=== PATIENT | male | born 1995 | race Caucasian/White ===

== ENCOUNTER 2023-12-06 12:53 | Emergency (ER) | payer SELFPAY ==
[2023-12-06 12:53] VITALS: BP 147/103; PULSE 85; RESP 16; TEMP 35.8; O2SAT 99; BMI 22.3
--- NOTE | 2023-12-06 13:04 | EDS_ITS ---
HPI History of Present Illness Chief Complaint: Substance Abuse EXAM Physical Exam Const Vital Signs: 12/06/23 12:53 Temperature 96.4 F L Temperature Source Temporal Pulse Rate 85 Respiratory Rate 16 Blood Pressure 147/103 H Blood Pressure Mean 117 Pulse Ox 99 Oxygen Delivery Method Room Air [facility] Narrative Medical decision making narrative: HISTORY OF PRESENT ILLNESS: 28-year-old male here with concern for opiate use disorder and requesting detox. States he snorts various opiates does not inject. REVIEW OF SYSTEMS: Pertinent positives: Fatigue, body aches Pertinent negatives: Chest pain, shortness of breath, fever, nausea vomiting, abdominal pain PHYSICAL EXAM: Nursing triage notes reviewed, Vital signs reviewed Constitutional: please see [facility] HENT: MMM Eyes: Pupils equal round and reactive to light, Extraocular muscles intact Neck: No stridor, no JVD, full neck ROM Lungs: Clear to auscultation, No wheezing or rales. No increased work of breathing, no conversational dyspnea, no accessory muscle use, no nasal flaring. No respiratory distress noted Heart: Regular rate and rhythm, No murmurs, No rubs and No gallops, 2+ distal pulses (radial, femoral, posterior tibial) in all extremities Abdomen: Soft, there is no tenderness, rigidity, rebound or guarding, no obvious peritoneal signs, no palpable pulsatile abdominal masses, no auscultated abdominal bruit : No CVAT Extremities: No edema Neuro: No focal neurological deficits, cranial nerves II through XII intact, 5/5 strength in all extremities. Intact sensation to light touch in all extremities, 2+ reflexes bilateral patella tendons. Normal gait. No ataxia. Skin: No rash or lesions noted MEDICAL DECISION MAKING: Chief Complaint: Opiate use disorder External records reviewed: No recent ED visits Factors affecting care: Opiate use disorder Social determinants of health: Opiate use History obtained from others: Patient's family Consults: none [facility] Narrative: Patient is hemodynamically stable, afebrile, nontoxic-appearing. No focal cardiopulmonary findings. No focal neurologic deficits Obtained medical clearance labs. Patient is medically cleared for inpatient detox admission. The patient and/or family, caregivers express understanding. The patient and/or family, caregivers agrees with the plan. Shared decision making: I will have a discussion with the patient and or visitors regarding risk/benefits of further testing or admission. They will be made aware of of the risk/benefits inherent in this decision they will be given the opportunity to voice understanding. Total critical care time today provided was at least 0 minutes. This excludes separately billable procedures. Critical care time (if documented) is secondary to the patient having high probability of clinically significant/life threatening deterioration in the patient's condition which required my urgent intervention. Impression: 1. Opiate use disorder Dispo: Admit This note was generated with [employer] dictation software. It may contain incorrect words, spelling, and punctuation that were not noted in review of the chart prior to signing. Discharge Plan Triage Chief Complaint: Substance Abuse ED Provider: Luis Jarvis Dx/Rx/DC Orders Primary Care Provider: KIAN SANTIAGO Referrals: KIAN SANTIAGO [Other]
--- NOTE | 2023-12-06 13:06 | EKG12_ITS ---
Test Reason : WEAKNES Blood Pressure : / mmHG Vent. Rate : 072 BPM Atrial Rate : 072 BPM P-R Int : 164 ms QRS Dur : 098 ms QT Int : 374 ms P-R-T Axes : 063 078 054 degrees QTc Int : 409 ms Normal sinus rhythm with sinus arrhythmia Indeterminate axis Borderline ECG Confirmed by RICH NICHOLSON, NANCY ([id number]), senior technical editor VIELKA BEAL ([id number]) on 12/07/2023 10:20:29 AM Referred By: Confirmed By:NANCY VILLANUEVA MD
--- NOTE | 2023-12-06 13:11 | NURSING ---
NO OLD EKGS
[2023-12-06 13:29] LABS: Absolute Lymphocyte Count 1.19 X10^3/uL (0.83-4.51); Basophil# 0.02 X10^3/uL; Basophil% 0.3 % (0-1); Eosinophil# 0.02 X10^3/uL; Eosinophils% 0.3 % (0-5); Hemoglobin 15.7 g/dL (13.0-16.5); Lymphocyte # 1.19 X10^3/ul (0.83-4.51); Mean Corp Hgb Conc 34.1 g/dL (32-36); Mean Corpuscular Hgb 29.3 pg (27.0-32.0); Mean Platelet Vol. 10.2 fl (6.2-12.0); Monocyte# 0.21 X10^3/uL; Monocyte% 2.8 % (0-10); NRBC Flagged by Analyzer 0 % (0-5); Neutrophil # 5.98 X10^3/uL (2.7-7.7); Neutrophil % 80.3 % (47-70); Platelet Count 323 K/mm3 (150-450); RBC Distribution Width CV 12.6 % (11.6-14.6); RBC Distribution Width SD 39.2 fl (35.1-43.9); Red Blood Count 5.35 M/mm3 (4.6-6.2); White Blood Count 7.4 K/mm3 (4.4-11.0)
[2023-12-06 13:46] LABS: Amphetamine Urine VISTA NEGATIVE (<1000 ng/mL); Barbiturate Urine VISTA NEGATIVE (< 200 ng/mL); Benzodiazepine Urine VISTA POSITIVE (< 200 ng/mL); Cocaine Urine VISTA NEGATIVE (< 300 ng/mL); Ecstacy Urine VISTA NEGATIVE (< 500 ng/mL); Methadone Urine VISTA NEGATIVE (< 300 ng/mL); PCP Urine VISTA NEGATIVE (< 25 ng/mL); THC Urine VISTA POSITIVE (< 50 ng/mL); Vista UDS pH Range 5
[2023-12-06 13:52] LABS: Anion Gap 7 (5-15); BUN 16 mg/dL (7-18); BUN/Creat Ratio 14.5 RATIO (10-20); Calcium,Total 9.4 mg/dL (8.5-10.1); Chloride 106 mmol/L (98-107); EST Glomerular Filtration Rate 85 mL/min (>60); Est Glom Filt Rate - Afr Amer 102 mL/min (>60); Estimated Creatinine Clearance 88.84 ml/min; Glucose 207 mg/dL (74-106); Potassium 3.2 mmol/L (3.5-5.1); Sodium Level 139 mmol/L (136-145)
[2023-12-06 13:53] LABS: Alcohol, Blood (Medical)-Serum < 3.0 mg/dL
--- OUTSIDE RECORDS SUMMARY | 2023-12-06 14:14 | XMS RPT_ITS | CCD ---
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 Genitourinary: Negative for dysuria, frequency and urgency. Musculoskeletal: Negative for back pain, joint pain and neck pain. Skin: Negative for itching and rash. Neurological: Negative for dizziness, focal weakness, seizures, weakness and headaches. Endo/Heme/Allergies: Negative for environmental allergies and polydipsia. Does not bruise/bleed easily. Psychiatric/Behavioral: Negative for depression, memory loss and suicidal ideas. The patient is not nervous/anxious and does not have insomnia. BP 124/82 Pulse 84 Temp (Src) 98.8 (Temporal) Wt 153 lb (69.4kg) SpO2 99% Last 3 Encounter BP Readings: Date: BP: 07/08/2023 124/82 09/15/2022 122/62 07/08/2022 114/80 Last 3 Encounter Wt Readings: Date: Wt: 07/08/2023 153 lb (69.4 kg) 09/15/2022 164 lb 6.4 oz (74.6 kg) 07/08/2022 161 lb (73 kg) Physical Exam Vitals and nursing note reviewed. Constitutional: General: He is not in acute distress. Appearance: He is not diaphoretic. HENT: Head: Normocephalic and atraumatic. Cardiovascular: Rate and Rhythm: Normal rate and regular rhythm. Pulmonary: Effort: Pulmonary effort is normal. No respiratory distress. Breath sounds: Wheezing (in all lung ibrahim) present. Skin: General: Skin is warm and dry. Neurological: Mental Status: He is alert and oriented to person, place, and time. ASSESSMENT/PLAN: 1. Mild intermittent asthma with exacerbation - ICD9: 493.92, ICD10: J45.21 (primary diagnosis) - Mild intermittent asthma acute excacerbation without status - Exacerbation treatment of prednisone burst - Avoidance of triggers recommended - PREDNISONE 20 MG TABLET 2. Acute cough - ICD9: 786.2, ICD10: R05.1 - OTC meds PRN Jelani Manley MD Discussed above plan with patient. Pt agreeable with above plan. Medical Decision Making: Problems: Moderate: Acute illness with systemic symptoms Risk: Moderate: Drug management Medical Decision Making Level: 4 - Moderate [facility] 07-08-2023 History of Present illness Narrative Visit Date: July 08, 2023 Patient Name: Mr.Cheston Gray Date of : 1995 MRN/E #: [id number] Chief Complaint Patient presents with: Cough Nursing Intake: There are no exam notes on file for this visit. History of present illness Daxa Gary is a 27 year old male who presents for cough and SOB. Pt states symptoms started about 3-4 days ago. Has been having a cough with some clear to yellow sputum production. Has SOB worse at night. Denies fever, chills, Gi symptoms, sinus pain/pressure, ear pain, sore throat. Has not tried anything for this. His mother in law has been sick and he lives with her. I have confirmed and edited as necessary, the PFSH and ROS obtained by others. ALLERGIES No Known Allergies No past medical history on file. PAST SURGICAL HISTORY Procedure Laterality Date PARTIAL REMOVAL OF COLON infant Social History Tobacco Use Smoking status: Every Day Packs/day: .5 Types: Cigarettes Smokeless tobacco: Never Vaping Use Vaping Use: Never used Substance Use Topics Alcohol use: Not Currently Drug use: Not Currently FAMILY HISTORY Problem Relation Age of Onset Diabetes Father Review of Systems Constitutional: Negative for chills, diaphoresis, fever and weight loss. HENT: Negative for congestion, ear pain, hearing loss, sinus pain and sore throat. Eyes: Negative for blurred vision, pain and discharge. Respiratory: Positive for cough, sputum production and shortness of breath. Cardiovascular: Negative for chest pain and palpitations. Gastrointestinal: Negative for abdominal pain, constipation, diarrhea, nausea and vomiting. Genitourinary: Negative for dysuria, frequency and urgency. Musculoskeletal: Negative for back pain, joint pain and neck pain. Skin: Negative for itching and rash. Neurological: Negative for dizziness, focal weakness, seizures, weakness and headaches. Endo/Heme/Allergies: Negative for environmental allergies and polydipsia. Does not bruise/bleed easily. Psychiatric/Behavioral: Negative for depression, memory loss and suicidal ideas. The patient is not nervous/anxious and does not have insomnia. BP 124/82 Pulse 84 Temp (Src) 98.8 (Temporal) Wt 153 lb (69.4kg) SpO2 99% Last 3 Encounter BP Readings: Date: BP: 07/08/2023 124/82 09/15/2022 122/62 07/08/2022 114/80 Last 3 Encounter Wt Readings: Date: Wt: 07/08/2023 153 lb (69.4 kg) 09/15/2022 164 lb 6.4 oz (74.6 kg) 07/08/2022 161 lb (73 kg) Physical Exam Vitals and nursing note reviewed. Constitutional: General: He is not in acute distress. Appearance: He is not diaphoretic. HENT: Head: Normocephalic and atraumatic. Cardiovascular: Rate and Rhythm: Normal rate and regular rhythm. Pulmonary: Effort: Pulmonary effort is normal. No respiratory distress. Breath sounds: Wheezing (in all lung ibrahim) present. Skin: General: Skin is warm and dry. Neurological: Mental Status: He is alert and oriented to person, place, and time. ASSESSMENT/PLAN: 1. Mild intermittent asthma with exacerbation - ICD9: 493.92, ICD10: J45.21 (primary diagnosis) - Mild intermittent asthma acute excacerbation without status - Exacerbation treatment of prednisone burst - Avoidance of triggers recommended - PREDNISONE 20 MG TABLET 2. Acute cough - ICD9: 786.2, ICD10: R05.1 - OTC meds PRN Jelani Manley MD Discussed above plan with patient. Pt agreeable with above plan. Medical Decision Making: Problems: Moderate: Acute illness with systemic symptoms Risk: Moderate: Drug management Medical Decision Making Level: 4 - Moderate documented in this encounter [facility] 01-12-2023 Emergency department Note EMERGENCY DEPARTMENT ENCOUNTER Pt Name: Daxa Gray Birthdate 1995 Date of evaluation: 01/12/2023 ED Provider: Jj Rowland MD CHIEF COMPLAINT Chief Complaint Patient presents with Earache HISTORY OF PRESENT ILLNESS (Location/Symptom, Timing/Onset, Context/Setting, Quality, Duration, Modifying Factors, Severity) Note limiting factors. I wore appropriate PPE for the entirety of this encounter. HPI Daxa Gray is a 27 y.o. male who presents to the emergency department complaint of right ear pain and drainage. He denies nasal congestion, sore throat, cough. Denies being immunocompromise. Denies being diabetic. Nursing Notes were reviewed. REVIEW OF SYSTEMS Review of Systems Constitutional: Negative for chills and fever. HENT: Positive for ear discharge and ear pain. Negative for congestion and sore throat. Respiratory: Negative for cough and shortness of breath. Cardiovascular: Negative for chest pain. Allergic/Immunologic: Negative for immunocompromised state. Pertinent positives and negatives as per HPI PAST MEDICAL HISTORY History reviewed. No pertinent past medical history. SURGICAL HISTORY History reviewed. No pertinent surgical history. CURRENT MEDICATIONS Previous Medications No medications on file ALLERGIES Patient has no known allergies. FAMILY HISTORY No family history on file. SOCIAL HISTORY Social History Socioeconomic History Marital status: Tobacco Use Smoking status: Every Day Packs/day: 0.50 Types: Cigarettes Smokeless tobacco: Never Substance and Sexual Activity Alcohol use: Not Currently Drug use: Yes Types: Marijuana SCREENINGS PHYSICAL EXAM ED Triage Vitals [01/12/23 1626] Temp Heart Rate Resp BP 37 C (98.6 F) 88 16 134/79 SpO2 Temp Source Heart Rate Source Patient Position 98 % Temporal Monitor -- BP Location FiO2 (%) -- -- Physical Exam Vitals and nursing note reviewed. Constitutional: General: He is not in acute distress. Appearance: He is not ill-appearing. Comments: 27-year-old male HENT: Head: Normocephalic and atraumatic. Left Ear: Tympanic membrane and external ear normal. Ears: Comments: Patient has right external ear canal with erythema with discharge. No significant pain with movement of the pinna. Visualized portion of tympanic membrane is nonerythematous or bulging. No mastoid tenderness. Nose: Nose normal. Mouth/Throat: Mouth: Mucous membranes are moist. Pharynx: Oropharynx is clear. No oropharyngeal exudate or posterior oropharyngeal erythema. Eyes: Extraocular Movements: Extraocular movements intact. Pupils: Pupils are equal, round, and reactive to light. Cardiovascular: Rate and Rhythm: Normal rate and regular rhythm. Pulmonary: Effort: Pulmonary effort is normal. Musculoskeletal: Cervical back: Normal range of motion. Neurological: Mental Status: He is alert. DIAGNOSTIC RESULTS RADIOLOGY (Per Emergency Physician): Interpretation per the Radiologist below, if available at the time of this note: No orders to display LABS: Labs Reviewed - No data to display All other labs were within normal range or not returned as of this dictation. EMERGENCY DEPARTMENT COURSE and DIFFERENTIAL DIAGNOSIS/MDM: Vitals: Vitals: 01/12/23 1626 BP: 134/79 Pulse: 88 Resp: 16 Temp: 37 C (98.6 F) TempSrc: Temporal SpO2: 98% Medications - No data to display Evaluated for his right ear pain. Patient has external ear canal edema with discharge. No mastoid tenderness. Visualize tympanic membrane does not appear consistent with an otitis media. Patient prescribed ciprofloxacin, dexamethasone otic drops. Evaluated in triage. MDM elements: The patient presented with chief complaint of right ear pain. The differential diagnosis associated with this patient's presentation includes station tube dysfunction, otitis externa, otitis media, mastoiditis. Patient is in agreement with this plan. PROCEDURES: Unless otherwise noted below, none Procedures FINAL IMPRESSION 1. Acute otitis externa of right ear, unspecified type DISPOSITION PATIENT REFERRED TO: No follow-up provider specified. DISCHARGE MEDICATIONS: New Prescriptions No medications on file (Comment: Please note this report has been produced using speech recognition software and may contain errors related to that system including errors in grammar, punctuation, and spelling, as well as words and phrases that may be inappropriate. If there are any questions or concerns please feel free to contact the dictating provider for clarification.) Jj Rowland MD (electronically signed) Emergency Medicine Provider Jj Rowland MD 01/12/23 7506 Pt presents with r ear pain. States it started today and is draining thick drainage . Took ibuprofen an hour ago without relief. documented in this encounter [facility] 01-12-2023 Emergency department Triage note Pt presents with r ear pain. States it started today and is draining thick drainage . Took ibuprofen an hour ago without relief. [facility] 01-12-2023 Physician Emergency department Note EMERGENCY DEPARTMENT ENCOUNTER Pt Name: Daxa Gray Birthdate 1995 Date of evaluation: 01/12/2023 ED Provider: Jj Rowland MD CHIEF COMPLAINT Chief Complaint Patient presents with Earache HISTORY OF PRESENT ILLNESS (Location/Symptom, Timing/Onset, Context/Setting, Quality, Duration, Modifying Factors, Severity) Note limiting factors. I wore appropriate PPE for the entirety of this encounter. HPI Daxa Gray is a 27 y.o. male who presents to the emergency department complaint of right ear pain and drainage. He denies nasal congestion, sore throat, cough. Denies being immunocompromise. Denies being diabetic. Nursing Notes were reviewed. REVIEW OF SYSTEMS Review of Systems Constitutional: Negative for chills and fever. HENT: Positive for ear discharge and ear pain. Negative for congestion and sore throat. Respiratory: Negative for cough and shortness of breath. Cardiovascular: Negative for chest pain. Allergic/Immunologic: Negative for immunocompromised state. Pertinent positives and negatives as per HPI PAST MEDICAL HISTORY History reviewed. No pertinent past medical history. SURGICAL HISTORY History reviewed. No pertinent surgical history. CURRENT MEDICATIONS Previous Medications No medications on file ALLERGIES Patient has no known allergies. FAMILY HISTORY No family history on file. SOCIAL HISTORY Social History Socioeconomic History Marital status: Tobacco Use Smoking status: Every Day Packs/day: 0.50 Types: Cigarettes Smokeless tobacco: Never Substance and Sexual Activity Alcohol use: Not Currently Drug use: Yes Types: Marijuana SCREENINGS PHYSICAL EXAM ED Triage Vitals [01/12/23 1626] Temp Heart Rate Resp BP 37 C (98.6 F) 88 16 134/79 SpO2 Temp Source Heart Rate Source Patient Position 98 % Temporal Monitor -- BP Location FiO2 (%) -- -- Physical Exam Vitals and nursing note reviewed. Constitutional: General: He is not in acute distress. Appearance: He is not ill-appearing. Comments: 27-year-old male HENT: Head: Normocephalic and atraumatic. Left Ear: Tympanic membrane and external ear normal. Ears: Comments: Patient has right external ear canal with erythema with discharge. No significant pain with movement of the pinna. Visualized portion of tympanic membrane is nonerythematous or bulging. No mastoid tenderness. Nose: Nose normal. Mouth/Throat: Mouth: Mucous membranes are moist. Pharynx: Oropharynx is clear. No oropharyngeal exudate or posterior oropharyngeal erythema. Eyes: Extraocular Movements: Extraocular movements intact. Pupils: Pupils are equal, round, and reactive to light. Cardiovascular: Rate and Rhythm: Normal rate and regular rhythm. Pulmonary: Effort: Pulmonary effort is normal. Musculoskeletal: Cervical back: Normal range of motion. Neurological: Mental Status: He is alert. DIAGNOSTIC RESULTS RADIOLOGY (Per Emergency Physician): Interpretation per the Radiologist below, if available at the time of this note: No orders to display LABS: Labs Reviewed - No data to display All other labs were within normal range or not returned as of this dictation. EMERGENCY DEPARTMENT COURSE and DIFFERENTIAL DIAGNOSIS/MDM: Vitals: Vitals: 01/12/23 1626 BP: 134/79 Pulse: 88 Resp: 16 Temp: 37 C (98.6 F) TempSrc: Temporal SpO2: 98% Medications - No data to display Evaluated for his right ear pain. Patient has external ear canal edema with discharge. No mastoid tenderness. Visualize tympanic membrane does not appear consistent with an otitis media. Patient prescribed ciprofloxacin, dexamethasone otic drops. Evaluated in triage. MDM elements: The patient presented with chief complaint of right ear pain. The differential diagnosis associated with this patient's presentation includes station tube dysfunction, otitis externa, otitis media, mastoiditis. Patient is in agreement with this plan. PROCEDURES: Unless otherwise noted below, none Procedures FINAL IMPRESSION 1. Acute otitis externa of right ear, unspecified type DISPOSITION PATIENT REFERRED TO: No follow-up provider specified. DISCHARGE MEDICATIONS: New Prescriptions No medications on file (Comment: Please note this report has been produced using speech recognition software and may contain errors related to that system including errors in grammar, punctuation, and spelling, as well as words and phrases that may be inappropriate. If there are any questions or concerns please feel free to contact the dictating provider for clarification.) Jj Rowland MD (electronically signed) Emergency Medicine Provider Jj Rowland MD 01/12/23 5358 [facility] 12-16-2022 Miscellaneous Notes messaged the patient to inform. Cheyenne Moreno December 16, 2022 10:15 AM Has missed last 2 appointments. Needs a follow-up Kevin Santiago PA-C Pharmacy faxed requesting the following refill Refill(s) Requested: Requested Prescriptions Pending Prescriptions Disp Refills montelukast (SINGULAIR) 10 mg tablet [Pharmacy Med Name: MONTELUKAST SOD 10 MG TABLET] 30 tablet 2 Sig: TAKE 1 TABLET BY MOUTH EVERYDAY AT BEDTIME ALLERGIES No Known Allergies (home) [phone] (cell) Last Office Visit Date: 09/15/2022 Last [facility] Health Visit: Visit date not found Future Appointment: Visit date not found The patients preferred pharmacy has been captured for this encounter? yes Request is for script(s) to be escript to pharmacy. Monalisa Terry MA documented in this encounter [facility] 12-01-2022 Miscellaneous Notes No Show Documentation Cheston Collmar no showed for an appointment on 12/01/2022 with Kevin Santiago PA-C at 1:40AM. He was scheduled for Back pain and UTI. I called and spoke with the patient regarding his missed appointment. Cheston stated the reason that he missed his appointment was because spoke with patient but he hung up on me and when I Called back he did not answer . Resources discussed/offered to patient: N/A No show determined to be fault of patient: Yes This is the patients third no show in the last 12 months. Patient was rescheduled for N/A. Letter mailed : Yes Is this the Third or Fourth No Show ? Yes Danielle Ruggiero December 01, 2022 2:50 PM documented in this encounter [facility] 10-06-2022 Miscellaneous Notes Pt missed last appointment and no follow-ups scheduled. Please reach out to patient for follow-up in the next 3 months Kevin Santiago PA-C Patient/Patient's Pharmacy is requesting the following refill. Patient's last appointment: 09/15/22. Next appointment: not found . Requested Prescriptions Pending Prescriptions Disp Refills omeprazole (PRILOSEC) 20 mg capsule [Pharmacy Med Name: OMEPRAZOLE DR 20 MG CAPSULE] 30 capsule 2 Sig: TAKE 1 CAPSULE BY MOUTH ONCE DAILY Patient Phone numbers: [phone] (home) Request is for script(s) to be escript to pharmacy. Shena Oliveros LPN documented in this encounter [facility] 09-30-2022 Miscellaneous Notes No Show Documentation Daxa Gray no showed for an appointment on 09/30/2022 with Kevin Santiago PA-C at 3:00pm. He was scheduled for check breathing follow up appointment. I called and no voice mail box was set up yet regarding his missed appointment. Daxa stated the reason that he missed his appointment was because no voice mail box was set up yet. Resources discussed/offered to patient: na No show determined to be fault of patient: N/A This is the patients second no show in the last 12 months. Patient was rescheduled for na. Letter mailed : Yes Is this the Third or Fourth No Show ? No Laurel Gamez September 30, 2022 3:36 PM documented in this encounter [facility] 09-24-2022 Miscellaneous Notes Patient notified Monalisa Terry MA ----- Message from Kevin Santiago PA-C sent at 09/24/2022 12:09 PM EST ----- Vitamin D is low- recommend starting OTC supplement, 1000 units daily Glucose elevated, recommend A1c at next office visit Kidney function slightly decreased but still in normal range, recommend drinking at least 64 oz of water daily CXR was negative All other labs WNL Kevin Santiago PA-C documented in this encounter [facility] 09-08-2022 Miscellaneous Notes No Show Documentation Daxa Gray no showed for an appointment on 09/08/2022 with Kevin Santiago PA-C at 8:20AM. He was scheduled for 2 Month Follow Up. I called but was unable to leave a message or speak with the patient regarding his missed appointment. Daxa stated the reason that he missed his appointment was because N/A . Resources discussed/offered to patient: Unable to leave a message No show determined to be fault of patient: N/A This is the patients second no show in the last 12 months. Patient was rescheduled for N/A. Letter mailed : Yes Is this the Third or Fourth No Show ? No Danielle Ruggiero September 08, 2022 8:43 AM documented in this encounter [facility] 08-27-2022 Miscellaneous Notes Labs mailed Orders placed again for labs. Kevin Santiago PA-C Patient went to get labs and chest xray done, they told patient his orders were . They want you to put in new orders. They cancelled his xray order. Can you put in new order? PARVIN Bashir August 26, 2022 3:17 PM documented in this encounter [facility] 07-08-2022 Instructions Kevin Santiago PA-C - 07/08/2022 9:05 AM EDT Images from the original note were not included. Obtain chest XR Please obtain labs prior to your next appointment. You must be fasting for 8 hours prior to obtaining labs. For breathing: Medrol dose back Start Symbicort twice daily for asthma control Use albuterol as needed for wheezing/shortness of breath every 4-6 hours as needed For acid reflux: Take Prilosec 20 mg once daily 30 min prior to eating Call with questions or concerns, Kevin Santiago PA-C GERD, Hiatal Hernia & Heartburn What is gastroesophageal reflux? Gastroesophageal reflux or GERD, is the presence of stomach contents in the esophagus. A weakened valve between the esophagus and stomach allows gastric contents to irritate the esophagus. GERD affects many people, and usually presents itself as heartburn. In most cases, heartburn can be relieved through diet and lifestyle changes. Six tips to control heartburn Avoid foods and beverages that irritate the esophagus and might further weaken the muscular valve. These include fried and fatty foods, peppermint, chocolate, alcohol, coffee, citrus fruits and juices, and tomato products. Lose weight if you are overweight. Stop smoking. Elevate your head 6 inches by elevating the head of your bed on blocks or books. Avoid lying down two to three hours after eating. Take an [id number] antacid. Decreasing your portion sizes at mealtime might also improve symptoms. Eating meals at least two to three hours before bedtime might lessen reflux by allowing the acid in the stomach to decrease and the stomach to partially empty. What is the role of hiatal hernia as a cause of reflux? Heartburn occurs when the lower esophageal sphincter (LES) is not as strong as normal. This allows stomach acid to escape back into the esophagus and create discomfort. Hiatal hernia is diagnosed when the stomach moves up into the chest through the opening in the diaphragm. (The diaphragm is the boundary that separates the abdominal contents from the chest cavity.) The opening in the diaphragm acts as an additional barrier to acid reflux. Hiatal hernia might not require treatment unless it is in danger of strangulation or complicated by GERD. What are the goals of treating reflux? Eliminate the patient's symptoms Heal esophageal injury Manage or prevent return of reflux Prevent complications What tests are used to diagnose reflux-associated problems? Barium meal UGI (upper gastrointestinal barium exam) Upper endoscopy (flexible tube with light and camera to examine digestive tract) 24-hour ph monitoring (measures the amount of acid flowing into the esophagus from the stomach) High resolution esophageal manometry (measures the function of the lower esophageal sphincter) Gastric emptying study Does GERD and hiatal hernia require surgery? A small number of patients might need surgery because of poor response to medical therapy. Although GERD and hiatal hernia can limit daily activities, most people will find relief with an understanding of the causes and proper treatment. Can surgery help stop GERD? A laparoscopic (minimally invasive) repair of hiatal hernia and reflux called Susu fundoplication has been shown to be 90% effective in most patient populations. The surgery strengthens the lower esophageal sphincter. It requires general anesthesia and a one-day stay in the hospital. Postoperatively, patients no longer require long-term therapy with Prilosec or other antacid medications. References [place]. Acid Reflux Accessed 01/28/2016. [place] [employer]. Gastroesophageal Reflux Disease (GERD) Accessed 01/28/2016. [employer] [place] [employer] and [employer]estive [employer]. Gastroesophageal Reflux (AEC) and Gastroesophageal Reflux Disease (GERD) Accessed 01/28/2016. Copyright 8833-0002 The [facility]. All rights reserved This information is provided by the [facility] and is not intended to replace the medical advice of your doctor or health care provider. Please consult your health care provider for advice about a specific medical condition. For additional health information, please contact the Center for Consumer Health Information at the [facility] or toll-free extension [phone]. If you prefer, you may visit [email or web address] or [email or web address]. This document was last reviewed on: 2016 index#[id number] documented in this encounter [facility] 07-08-2022 History of Present illness Narrative Images from the original note were not included. [facility] [address] [address] Date of Evaluation: 07/08/2022 Patient Name: Daxa Gray : 1995 Chief Complaint: Patient presents with: Heartburn Cough Nursing Intake: There are no exam notes on file for this visit. Subjective Mr. Gray is a 26 year old male who presents for annual physical exam. HPI Patient presents to establish care with our

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
--- NOTE | 2023-12-06 15:45 | PCM.HP.STD ---
HPI - General General Date of Admission: 12/06/23 Date of Service: 12/06/23 Chief Complaint: Opioid de-addiction HPI Narrative JAMEY GRAY, is a 28 M who presents to the hospital for concerns regarding chronic opioid use [fentanyl, Percocet]'s noted almost every day for the last 2 years. His last use was yesterday. He also smokes 1 pack a day of cigarettes, and marijuana. He previously has tried cocaine use but is no longer using the same. Denies any alcohol use or benzodiazepine use. No IV drug abuse. Has tattoos in the past but no needle sharing. He is motivated to quit for his health, take care of his and children. He is presently employed. Has a history of colonic resection due to infection in childhood. Has not tried inpatient rehabilitation before. Has a history of asthma was prescribed albuterol but not using it regularly. No cough or any other concerns. [facility] Allergy/AdvReac Type Severity Reaction Status Date / Time No Known Allergies Allergy Verified 12/06/23 15:52 ROS Review of Systems ROS Unobtainable: Denies due to encephalopathy, due to endotracheal tube, due to mental condition, due to mental status or other Constitutional Constitutional: Denies anorexia, change in weight, chills, fatigue, fever(s), malaise, night sweats, weakness or other Eyes Eyes: Denies blurry vision, change in eye color, change in vision, discharge from eye(s), double vision, erythema, eye pain, loss of vision or other ENT HEENT: Denies abnormal hearing, dysphagia, ear pain, epistaxis, headache(s), hearing loss, nasal congestion, nasal discharge, post nasal drip, sinus pressure, sore throat or other Cardiovascular Cardiovascular: Denies chest pain, claudication, dyspnea on exertion, edema, lightheadedness, orthopnea, palpitations, paroxysmal nocturnal dyspnea, rapid heart rate, syncope or other Respiratory/Chest Respiratory/Chest: Denies cough, dyspnea, excessive phlegm production, hemoptysis, productive cough, shortness of breath at rest, shortness of breath with exertion, wheezing or other Gastrointestinal Gastrointestinal: Denies abdominal pain, coffee ground emesis, constipation, diarrhea, dyspepsia, hematemesis, hematochezia, loose stools, melena, nausea, vomiting or other Genitourinary Genitourinary: Denies burning urination, difficulty urinating, dysuria, hematuria, nocturia, urinary frequency, urinary hesitancy, urinary incontinence, urinary urgency or other Musculoskeletal Musculoskeletal: Denies arthralgias, back pain, joint pain, joint stiffness, joint swelling, myalgias, neck pain or other Neurologic Neurologic: Denies abnormal gait, abnormal speech, confusion, disequilibrium, dizziness, focal weakness, headache(s), numbness, paresthesias, seizure-like activity, seizures, syncope, tingling, tremor(s) or other Psychiatric Psychiatric: Denies anxiety, depression, homicidal ideation, suicidal ideation or other Endocrine Endocrinology: Denies change in body appearance, cold intolerance, excessive sweating, heat intolerance, polydipsia, polyuria or other Hematologic/Lymphatic Hematologic/Lymphatic: Denies anemia, easy bleeding, easy bruising, lymphadenopathy or other Allergic/Immunologic Allergic/Immunologic: Denies rhinitis, hives, eczemia, asthma or other Vital Signs Vital Signs Vital Signs: 12/06/23 12:53 Temperature 96.4 F L Temperature Source Temporal Pulse Rate 85 Respiratory Rate 16 Blood Pressure 147/103 H Blood Pressure Mean 117 Pulse Ox 99 Oxygen Delivery Method Room Air Weight Weight: 138 lb 8 oz Body Mass Index (BMI) 22.3 Physical Exam Const alert, oriented x3, no apparent distress, average body habitus and healthy appearing HEENT normocephalic Eyes PERRL and EOMs intact bilaterally Neck no lymphadenopathy Resp normal respiratory effort Cardio regular rate and regular rhythm GI normal to inspection, nondistended, normoactive bowel sounds Neuro oriented x3 and CN's II-XII intact bilaterally Results Medical Records Data Attestation: I reviewed the patient's medical records Lab / Micro Data 12/06/23 13:18 12/06/23 13:18 Labs: Laboratory Results - last 24 hr 12/06/23 13:18: WBC 7.4, RBC 5.35, Hgb 15.7, Hct 46.0, MCV 86.0, MCH 29.3, MCHC 34.1, RDW Std Deviation 39.2, RDW Coeff of Syd 12.6, Plt Count 323, MPV 10.2, Immature Gran % (Auto) 0.300, Neut % (Auto) 80.3 H, Lymph % (Auto) 16.0 L, [place] % (Auto) 2.8, Eos % (Auto) 0.3, Baso % (Auto) 0.3, Absolute Neuts (auto) 6.0, Absolute Lymphs (auto) 1.19, Nucleated RBC % 0, Sodium 139, Potassium 3.2 L, Chloride 106, Carbon Dioxide 26.0, Anion Gap 7, BUN 16, Creatinine 1.10, Estim Creat Clear Calc 88.84, Est GFR (MDRD) Af Amer 102, Est GFR (MDRD) Non-Af 85, BUN/Creatinine Ratio 14.5, Glucose 207 H, Calcium 9.4, Ethyl Alcohol < 3.0 12/06/23 13:21: Urine Opiates Screen NEGATIVE, Urine Methadone Screen NEGATIVE, Ur Barbiturates Screen NEGATIVE, Ur Phencyclidine Scrn NEGATIVE, Ur Amphetamines Screen NEGATIVE, MDMA (Ecstasy) Screen NEGATIVE, U Benzodiazepines Scrn POSITIVE H, Urine Cocaine Screen NEGATIVE, U Cannabinoids Screen POSITIVE H, Ur Drug Screen Comment Assessment & Plan Assessment/Plan (1) Drug abuse, opioid type: PLAN: Plan MR Gray, 28-year-old gentleman presents to the hospital for inpatient rehabilitation therapy for chronic opioid use. He has no active symptoms at this time and is overall doing well. He is presently motivated to quit and has good social support. At this time he has no features of withdrawal 1. Opioid withdrawal: -Manage based on the clinical opioid withdrawal scale -Anxiolytics, antidiarrheals and medication for abdominal cramps have been ordered 2. Chronic nicotine use -Nicotine patch 21 mg as needed -Inpatient direction therapy for nicotine abuse 3. Has good social support, social media sr strategy manager consult if needed. 4. DVT prophylaxis with enoxaparin ordered 5. Asthma: He is only on reliever therapy as needed -No indication for therapy at this time -Will continue to monitor Charges/Coding Visit Charges Inpatient E&M: 43028 Init Hosp L1
== END 2023-12-06 15:10 | disposition left against medical advice (07) ==
LOC: ED 14:12
PROVIDERS: Emergency Medicine
DX: F11.988 Opioid use, unspecified with other opioid-induced disorder (principal)
CPT/HCPCS: 80048; 80307; 80320; 85025; 93005; G0480

== ENCOUNTER 2023-12-06 15:51 | Inpatient (IN) | payer SELFPAY ==
[2023-12-06 15:52] VITALS: BP 130/99; PULSE 111; RESP 20; TEMP 37.7; O2SAT 97; BMI 22.0
--- NOTE | 2023-12-06 16:44 | EX.ED.SAOD ---
HPI History of Present Illness Chief Complaint: Substance Abuse Informant: patient Narrative Narrative: Patient returns to the ER requesting admission for detox. He was seen earlier today requesting detox from Percocet and fentanyl. He was all set to be admitted when he became nervous about not being able to contact his family and left the emergency room. He states he smoked some marijuana to help calm his nerves and he returns with his family supporting him for admission and detox. He states he feels cold, a little shaky, and slightly nauseated. [facility] Medical History (Updated 12/06/23 @ 16:[address] Shena Osorio MD) Drug abuse, opioid type Allergy/AdvReac Type Severity Reaction Status Date / Time No Known Allergies Allergy Verified 12/06/23 15:52 ROS ROS ED Constitutional Constitutional ED: Reports chills; Denies fever(s) Eyes Eyes: Denies discharge from eye(s) ENT ENT ED: Denies discharge from eye(s), rhinorrhea or sore throat Cardiovascular Cardiovascular: Denies chest pain or palpitations Respiratory/Chest Respiratory/Chest: Denies cough or dyspnea Gastrointestinal Gastrointestinal: Reports nausea; Denies abdominal pain or vomiting Genitourinary Genitourinary ED: Denies dysuria Musculoskeletal Musculoskeletal: Denies back pain or extremity pain Integumentary Denies Abrasions or rash Neurologic Neurologic: Denies headache(s) or weakness Psychiatric Psychiatric: Reports anxiety; Denies depression Allergic/Immunologic Allergic/Immunologic ED: Denies lip swelling or urticaria EXAM Physical Exam Const Vital Signs: 12/06/23 15:52 Temperature 99.8 F H Temperature Source Temporal Pulse Rate 111 H Respiratory Rate 20 H Blood Pressure 130/99 H Blood Pressure Mean 109 Pulse Ox 97 Oxygen Delivery Method Room Air Positive well nourished and well developed General Appearance ED: well developed HEENT Reports moist mucous membranes Eyes EOMs intact bilaterally Chest Wall inspection of chest normal and palpation of chest normal Resp normal respiratory effort and clear to auscultation bilaterally Cardio Rate: tachycardic GI soft to palpation and non-tender Auscultation: hypoactive bowel sounds Neuro oriented x3 and no sensory deficits noted Sensorium / Orientation: alert Motor Exam: strength 5/5 throughout Psych Mood & Affect: anxious MDM MDM MDM Narrative Medical decision making narrative: Patient's labs from earlier today reviewed. He does admit to using marijuana when he left here but no other drug use. He understands the rules of the program and does wish to be admitted. I will speak with hospitalist. IV line will be established and he will be given IV fluids, Zofran, and Ativan to help with his symptoms currently. Discharge Plan Triage Chief Complaint: Substance Abuse ED Provider: Shena Osorio Dx/Rx/DC Orders Clinical Impression: Desire for detoxification, Drug abuse, opioid type Primary Care Provider: KIAN SANTIAGO Referrals: KIAN SANTIAGO [Other] Disposition Disposition: Acute Care Hospital [facility]
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
[2023-12-06] MEDS: Ondansetron 4 MG/2 ML Vial IV (17:09)
[2023-12-06] MEDS: Lorazepam 2 MG/ML WCH Syringe 0.5 MG IV (17:09)
[2023-12-06] MEDS: 0.9% Normal Saline (1000mL) 1,000 ML 999 ML IV (17:09)
--- NOTE | 2023-12-06 17:19 | NURSING ---
MED SURG ADRIAN OPIATE ABUSE, DESIRE FOR DETOX
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
[2023-12-06 18:57] VITALS: BP 133/65; PULSE 70; RESP 16; TEMP 36.6; O2SAT 100
[2023-12-06 20:00] VITALS: BMI 21.2
[2023-12-06 20:11] VITALS: BP 132/78; PULSE 65; RESP 16; TEMP 36.9; O2SAT 96
[2023-12-06 22:59] VITALS: BP 113/61; PULSE 65; RESP 16; TEMP 36.5; O2SAT 98
[2023-12-06] MEDS: Gabapentin 300 MG Capsule PO (23:02)
[2023-12-06] MEDS: Buprenorphine HCl 2 MG TAB.SUBL SL (23:10)
[2023-12-06] MEDS: traZODone 100 MG Tablet PO (23:10)
[2023-12-07] MEDS: Dicyclomine 10 MG Capsule 20 MG PO (00:50)
[2023-12-07] MEDS: Methocarbamol 750 MG Tablet PO ×3 (00:50→22:17)
[2023-12-07 05:53] VITALS: BP 134/70; PULSE 62; RESP 18; TEMP 36.4; O2SAT 96
[2023-12-07] MEDS: Ondansetron 8 MG Tablet PO (06:04)
[2023-12-07] MEDS: Buprenorphine HCl 2 MG TAB.SUBL SL ×3 (06:05→22:17)
[2023-12-07 07:40] VITALS: BP 105/47; PULSE 75; RESP 16; TEMP 36.5; O2SAT 94
[2023-12-07] MEDS: Potassium Chloride Oral Tablet 20 MEQ 40 MEQ PO ×2 (09:15→10:57)
[2023-12-07] MEDS: hydrOXYzine PAM 25 MG Capsule 50 MG PO (10:59)
[2023-12-07 11:12] VITALS: BP 134/76; PULSE 61; RESP 16; TEMP 36.7; O2SAT 97
--- NOTE | 2023-12-07 11:55 | ADDICTION ---
clinician met with client to discuss his hx of substance use and tx upon detox discharge. client reported opiate use for approximately two years; received opiate pills from a coworker due to back pain. client reported that he was not able to terminate use on his own without detox. client endorses some sx's of anxiety possibly depression. client would like to attend community AA/NA meetings for sober support.
--- NOTE | 2023-12-07 12:59 | PCM.PN.HOSP ---
Objective Data Objective Data Vital Signs: Vital Signs Temp Pulse Resp BP Pulse Ox O2 Del Method 98.1 F 61 16 134/76 H 97 Room Air 12/07/23 11:12 12/07/23 11:12 12/07/23 11:12 12/07/23 11:12 12/07/23 11:12 12/07/23 11:12 Oxygen Delivery Method Room Air Weight: 135 lb 9.985 oz Body Mass Index (BMI) 21.2 Intake & Output: Intake and Output for Last 24 Hours 12/05/23 12/06/23 12/07/23 23:59 23:59 23:59 Intake Total 1400 / 1400 550 / 550 Balance 1400 / 1400 550 / 550 Physical Exam Narrative Seen and examined. Patient is states he takes pill form of oxycodone and fentanyl. Patient denies every use of IV opioids/needle use. Denies history of chronic hep C, HIV and hepatitis B. Physical exam General: Alert, Oriented x3, Cooperative HEENT: Conjunctival redness/injection. Atraumatic, PERRLA, EOMI, Normocephalic Oral: No Gingival or Mucosal Lesions/ Ulcerations Neck: Supple, No JVD, Negative Carotid Bruits Chest wall/Lungs: Air entry diminished in bilateral lung bases. No crepitation/rhonchi Cardiovascular: Regular rate, Regular Rhythm, Normal S1, Normal S2, No M/G/R Abdomen: Bowel Sounds Present, Soft, Non Tender, Non-Distended : No dysuria. No renal angle tenderness. No suprapubic tenderness. Extremities: No edema, Capillary Refill Less than 3 Seconds Skin: No rashes, No breakdown Musculoskeletal: No Tenderness to Palpation of Joints or Extremities Neurological: Cranial nerves II-XII grossly intact, DTR 2+/4. No acute focal neurological deficit. Psych/Mental Status: Flat affect, restless and diaphoretic, opioid withdrawal signs. Assessment & Plan Assessment/Plan (1) Acute hyperactive opioid withdrawal delirium: PLAN: Plan MR Hedrick, 28-year-old gentleman is admitted for inpatient medical therapy for acute opioid withdrawal symptoms with delirium. 1. Acute opioid withdrawal symptoms with history of chronic opioid use disorder with tolerance and relapse and dependence: Patient is being admitted in [facility] floor. The patient is started on buprenorphine along with other adjunctive medications as needed for medical stabilization as per order set of opioid withdrawal syndrome.Patient also on trazodone, hydroxyzine, gabapentin as needed ordered. Advised quitting opioid use. manager appointment consult. 2. Chronic nicotine use disorder with dependence and tolerance: Patient on nicotine patch 21 mg. 3. History of chronic asthma: Patient is on rescue inhaler therapy, albuterol inhaler. 4. DVT prophylaxis, low risk. No prophylaxis indicated. Charges/Coding Visit Charges Inpatient E&M: 33197 Subs Hosp L2
[2023-12-07 14:58] VITALS: BP 113/54; PULSE 70; RESP 16; TEMP 36.6; O2SAT 98
[2023-12-07 22:14] VITALS: BP 109/46; PULSE 55; RESP 18; TEMP 36.5; O2SAT 99
[2023-12-07] MEDS: traZODone 100 MG Tablet PO (22:17)
[2023-12-08 05:49] VITALS: BP 104/42; PULSE 55; RESP 18; TEMP 36.4; O2SAT 98
[2023-12-08] MEDS: Buprenorphine HCl 2 MG TAB.SUBL SL ×3 (05:52→22:32)
--- NOTE | 2023-12-08 09:16 | ADDICTION ---
clinician met with client to further discuss his tx plan upon discharge. as requested, he was given a list of AA meetings in the [facility]. client reported that he is feeling much better and is done with opiate use. client appears motivated to sustain sobriety. he continued to endorse using peers as the primary risk of relapse. client has sober peers in his life and reported he will interact with them. upon discharge, client az attend local AA meetings for support.
[2023-12-08 09:45] VITALS: BP 130/52; PULSE 67; RESP 18; TEMP 36.8; O2SAT 95
[2023-12-08] MEDS: Methocarbamol 750 MG Tablet PO ×2 (09:54→22:32)
[2023-12-08] MEDS: hydrOXYzine PAM 25 MG Capsule 50 MG PO ×2 (09:54→22:32)
--- NOTE | 2023-12-08 13:04 | CASEMGMT ---
Social Work SW spoke w/pt in regard to insurance, as he is listed as self pay. SW inquired if he would like to apply for Medicaid. Pt states that he actually will have insurance through his employer, he just needs to complete the paperwork. He states it will be retroactive and cover this hospital stay. SW encouraged pt to follow up w/[facility]'s financial dept and let them know his insurance information when he gets the bills, so the hospital can bill the insurance. Pt states understanding. REFUGIO Santos
[2023-12-08] MEDS: Acetaminophen 325 MG Tablet 650 MG PO (14:51)
[2023-12-08 14:54] VITALS: BP 129/57; PULSE 71; RESP 18; TEMP 36.7; O2SAT 96
[2023-12-08] MEDS: cloNIDine HCl 0.1 MG Tablet 0.100000000000000006 MG PO (14:57)
[2023-12-08] MEDS: Gabapentin 300 MG Capsule PO (14:57)
--- NOTE | 2023-12-08 15:31 | PCM.PN.HOSP ---
Reason for Visit Reason for Visit: Diagnoses Opioid use, unspecified with withdrawal (12/06/23) Objective Data Objective Data Vital Signs: Vital Signs Temp Pulse Resp BP Pulse Ox O2 Del Method 98.1 F 71 18 129/57 H 96 Room Air 12/08/23 14:54 12/08/23 14:54 12/08/23 14:54 12/08/23 14:54 12/08/23 14:54 12/08/23 14:54 Oxygen Delivery Method Room Air Weight: 135 lb 9.985 oz Body Mass Index (BMI) 21.2 Intake & Output: Intake and Output for Last 24 Hours 12/06/23 12/07/23 12/08/23 23:59 23:59 23:59 Intake Total 1400 / 1400 900 / 900 Balance 1400 / 1400 900 / 900 Physical Exam Narrative Seen and examined. Patient is states he takes pill form of oxycodone and fentanyl. Patient denies every use of IV opioids/needle use. Denies history of chronic hep C, HIV and hepatitis B. Patient is states he had a bad dream yesterday. Denies chronic benzodiazepine use. Physical exam General: Alert, Oriented x3, Cooperative HEENT: Conjunctival redness/injection. Atraumatic, PERRLA, EOMI, Normocephalic Oral: No Gingival or Mucosal Lesions/ Ulcerations Neck: Supple, No JVD, Negative Carotid Bruits Chest wall/Lungs: Air entry diminished in bilateral lung bases. No crepitation/rhonchi Cardiovascular: Regular rate, Regular Rhythm, Normal S1, Normal S2, No M/G/R Abdomen: Bowel Sounds Present, Soft, Non Tender, Non-Distended : No dysuria. No renal angle tenderness. No suprapubic tenderness. Extremities: No edema, Capillary Refill Less than 3 Seconds Skin: No rashes, No breakdown Musculoskeletal: No Tenderness to Palpation of Joints or Extremities Neurological: Cranial nerves II-XII grossly intact, DTR 2+/4. No acute focal neurological deficit. Psych/Mental Status: normal, appropriate. No flushing or diaphoresis. No agitation Assessment & Plan Assessment/Plan (1) Acute hyperactive opioid withdrawal delirium: PLAN: Plan MR Hedrick, 28-year-old gentleman is admitted for inpatient medical therapy for acute opioid withdrawal symptoms with delirium. 1. Acute opioid withdrawal symptoms with history of chronic opioid use disorder with tolerance and relapse and dependence: Patient is being admitted in [facility] floor. The patient is started on buprenorphine along with other adjunctive medications as needed for medical stabilization as per order set of opioid withdrawal syndrome.Patient also on trazodone, hydroxyzine, gabapentin as needed ordered. Advised quitting opioid use. manager inventory management consult. 12/08: Patient looks more calm and quite. Does not have active withdrawal symptoms but needs to complete medication course. Anticipate discharge tomorrow. 2. Chronic nicotine use disorder with dependence and tolerance: Patient on nicotine patch 21 mg. 3. History of chronic asthma: Patient is on rescue inhaler therapy, albuterol inhaler. 4. DVT prophylaxis, low risk. No prophylaxis indicated. Charges/Coding Visit Charges Inpatient E&M: 80476 Subs Hosp L2
[2023-12-08 22:20] VITALS: BP 139/86; PULSE 59; RESP 16; TEMP 36.6; O2SAT 100
[2023-12-08] MEDS: traZODone 100 MG Tablet PO (22:32)
[2023-12-09 03:00] VITALS: BP 104/53; PULSE 86; RESP 16; TEMP 36.6; O2SAT 97
[2023-12-09] MEDS: Gabapentin 300 MG Capsule PO (05:32)
[2023-12-09] MEDS: hydrOXYzine PAM 25 MG Capsule 50 MG PO (05:32)
[2023-12-09] MEDS: Acetaminophen 325 MG Tablet 650 MG PO (05:32)
--- NOTE | 2023-12-09 07:50 | DCINST_ITS ---
Discharge Instructions Diet Discharge Diet: No restrictions Activity Discharge Activity: Return to Normal Activity Weight Bearing Status: Weight bearing as tolerated Dressing / Incision Call your doctor if you observe: Fever of 101 or Higher, Coldness, Increased Pain, Numbness or Tingling, Change in Color, Inability to urinate, Inability to have a bowel movement, Shortness of breath, Dizziness, Fainting spells, Swelling in the ankles, Chest pain, Prolonged hiccupping, Increased palpitations (irregular heartbeat) and Calf discomfort Follow Up Care When: IN 2 WEEKS Test Results: Test results from this visit will be discussed in further detail at your follow- up appointment, if applicable. Discharge Plan Admission Admit Date/Time: 12/06/23 18:20 Attending Provider: Brad Salguero Primary Care Provider: KIAN SANTIAGO Consulting Providers: Caridad Newberry Discharge Orders/Prescriptions Prescriptions: No Action NK Referrals / Follow Up: KIAN SANTIAGO [Other] KIAN SANTIAGO [Other] Disposition Disposition (needs filled in before D/C Order can be placed): Home, Self Care
--- NOTE | 2023-12-09 07:51 | PCM.DC.SUM ---
Providers Date of Admission: 12/06/23 Date of Discharge: 12/09/23 Primary Care Physician: KIAN SANTIAGO Reason For Visit: OPIATE ABUSE Diagnosis Discharge Diagnosis (1) Acute hyperactive opioid withdrawal delirium: Status: Acute Code(s): F11.93 - Opioid use, unspecified with withdrawal Plan MR Hedrick, 28-year-old gentleman is admitted for inpatient medical therapy for acute opioid withdrawal symptoms with delirium. 1. Acute opioid withdrawal symptoms with history of chronic opioid use disorder with tolerance and relapse and dependence: Patient is being admitted in [facility] floor. The patient is started on buprenorphine along with other adjunctive medications as needed for medical stabilization as per order set of opioid withdrawal syndrome.Patient also on trazodone, hydroxyzine, gabapentin as needed ordered. Advised quitting opioid use. intervention manager consult. 12/08: Patient looks more calm and quite. Does not have active withdrawal symptoms but needs to complete medication course. 12/09: Patient is doing well. He took shower. Withdrawal symptoms are well-controlled. Advised to follow-up in 180 outpatient substance use rehab clinic. 2. Chronic nicotine use disorder with dependence and tolerance: Patient on nicotine patch 21 mg. 3. History of chronic asthma: Patient is on rescue inhaler therapy, albuterol inhaler. 4. DVT prophylaxis, low risk. No prophylaxis indicated. Discharge medication reconciliation done. Discharge follow-up instructions completed. Discharge process discussed with the patient and all questions were answered to patient's satisfaction. Follow with PCP in 1 to 2 weeks Total time spent, exact 35 minutes on discharge meds reconciliation, examination, coordination of care with nurses and ancillary staff, review of imaging and blood test and discussion with the patient on follow-up instructions. Medications at Discharge Home Medications NK 12/06/23 Physical Exam Narrative Seen and examined. Patient is states he takes pill form of oxycodone and fentanyl. Patient denies every use of IV opioids/needle use. Denies history of chronic hep C, HIV and hepatitis B. Patient is states he had a bad dream yesterday. Denies chronic benzodiazepine use. Physical exam General: Alert, Oriented x3, Cooperative HEENT: Conjunctival redness/injection. Atraumatic, PERRLA, EOMI, Normocephalic Oral: No Gingival or Mucosal Lesions/ Ulcerations Neck: Supple, No JVD, Negative Carotid Bruits Chest wall/Lungs: Air entry diminished in bilateral lung bases. No crepitation/rhonchi Cardiovascular: Regular rate, Regular Rhythm, Normal S1, Normal S2, No M/G/R Abdomen: Bowel Sounds Present, Soft, Non Tender, Non-Distended : No dysuria. No renal angle tenderness. No suprapubic tenderness. Extremities: No edema, Capillary Refill Less than 3 Seconds Skin: No rashes, No breakdown Musculoskeletal: No Tenderness to Palpation of Joints or Extremities Neurological: Cranial nerves II-XII grossly intact, DTR 2+/4. No acute focal neurological deficit. Psych/Mental Status: normal, appropriate. Mood appropriate Weight / BMI Weight Weight: 135 lb 9.985 oz Body Mass Index (BMI) 21.2 D/C Instructions Discharge Diet: No restrictions Weight Bearing Status: Weight bearing as tolerated Call your doctor if you observe: Fever of 101 or Higher, Coldness, Increased Pain, Numbness or Tingling, Change in Color, Inability to urinate, Inability to have a bowel movement, Shortness of breath, Dizziness, Fainting spells, Swelling in the ankles, Chest pain, Prolonged hiccupping, Increased palpitations (irregular heartbeat) and Calf discomfort When: IN 2 WEEKS Meaningful Use Info Meaningful Use Diagnoses (Choose all that apply): None applicable Discharge Plan Admission Admit Date/Time: 12/06/23 18:20 Attending Provider: Brad Salguero Primary Care Provider: KIAN SANTIAGO Consulting Providers: Caridad Newberry Discharge Orders/Prescriptions Prescriptions: No Action NK Referrals / Follow Up: KIAN SANTIAGO [Other] KIAN SANTIAGO [Other] Disposition Disposition (needs filled in before D/C Order can be placed): Home, Self Care Charges/Coding Visit Charges Inpatient E&M: 41319 Disch Hosp >30min
[2023-12-09 08:59] VITALS: BP 142/62; PULSE 81; RESP 16; TEMP 37.3; O2SAT 98
== END 2023-12-09 09:13 | disposition home or self-care (01) | DRG 897 ==
LOC: ED 17:05 → MS3 17:20
PROVIDERS: Admitting Provider Internal Medicine; Emergency Provider Emergency Medicine; Visit Provider Internal Medicine
DX: F11.23 Opioid dependence with withdrawal (principal); F12.90 Cannabis use, unspecified, uncomplicated; J45.909 Unspecified asthma, uncomplicated; F17.210 Nicotine dependence, cigarettes, uncomplicated
CPT/HCPCS: 36415; 99284; 99406; J7030; A4216; J2405